=== PATIENT | male | born 1945 | race Caucasian/White ===

== ENCOUNTER 2018-10-15 17:42 | Emergency (ER) | payer MEDICAID ==
[~2018-10-15] VITALS: Ht 170.2 cm; Wt 63.5 kg
[2018-10-15] MEDS ORDERED: TRAMADOL 50 MG50 MG PO (17:58)
[2018-10-15] MEDS ORDERED: NEXIUM40 MG PO (17:58)
[2018-10-15] MEDS ORDERED: BLOOD PRESSURE MED (17:59)
[2018-10-15] MEDS ORDERED: ZANTAC 150MG T150 MG PO (18:02)
[2018-10-15] MEDS ORDERED: ASPIR 8181 MG PO (18:02)
[2018-10-15] MEDS ORDERED: CARVEDILOL3.125 MG PO (18:02)
[2018-10-15] MEDS ORDERED: NORVASC10 MG PO (18:02)
[2018-10-15] MEDS ORDERED: NEURONTIN 300300 M1 PO (18:03)
[2018-10-15] MEDS ORDERED: SENEXON-S TABL1 EACH PO (18:03)
[2018-10-15] MEDS ORDERED: LIPITOR80 MG PO (18:03)
[2018-10-15] MEDS ORDERED: MAPAP500 MG PO (18:04)
[2018-10-15 19:15] VITALS: BP 148/89
== END 2018-10-15 19:15 | disposition home or self-care (01) ==
LOC: M.ERS 17:42
DX: S80.02XA Contusion of left knee, initial encounter (principal); S70.02XA Contusion of left hip, initial encounter; S90.32XA Contusion of left foot, initial encounter; Z95.1 Presence of aortocoronary bypass graft; Z88.2 Allergy status to sulfonamides; V89.2XXA Person injured in unspecified motor-vehicle accident, traffic, initial encounter; Y93.89 Activity, other specified; Y92.89 Other specified places as the place of occurrence of the external cause; Y99.8 Other external cause status

== ENCOUNTER 2019-04-08 15:41 | Emergency (ER) | payer MEDICAID ==
[~2019-04-08] VITALS: Ht 170.2 cm; Wt 64.4 kg
[~2019-04-08 15:41] MED LIST: ASPIR 8181 MG PO; BLOOD PRESSURE MED; CARVEDILOL3.125 MG PO; LIPITOR80 MG PO; MAPAP500 MG PO; NEURONTIN 300300 M1 PO; NEXIUM40 MG PO; NORVASC10 MG PO; SENEXON-S TABL1 EACH PO; TRAMADOL 50 MG50 MG PO; ZANTAC 150MG T150 MG PO
[2019-04-08 16:14] LABS: INFLUENZA A ANTIGEN Negative (Negative); INFLUENZA B ANTIGEN Negative (Negative)
[2019-04-08] MEDS ORDERED: ZPAK PO (16:35)
[2019-04-08] MEDS ORDERED: PREDNISONE 20 M20 M1 PO (16:35)
[2019-04-08 16:40] VITALS: BP 129/75
== END 2019-04-08 16:41 | disposition home or self-care (01) ==
LOC: M.ERS 15:41
PROVIDERS: Nurse Practitioner Family
DX: J40 Bronchitis, not specified as acute or chronic (principal); Z88.2 Allergy status to sulfonamides; Z95.1 Presence of aortocoronary bypass graft